=== PATIENT | male | born 2000 | race Hispanic/Latino ===

== ENCOUNTER 2022-04-17 11:10 | Emergency (ER) | payer OTHER, SELFPAY ==
[2022-04-17 11:26] VITALS: BP 127/87; PULSE 86; RESP 18; TEMP 36.1; O2SAT 100
--- NOTE | 2022-04-17 12:05 | ED.EPISTAXIS ---
HPI - Epistaxis General Chief complaint: Extremity Injury, Lower Stated complaint: LEFT FOOT PAIN Related Data Allergies Allergy/AdvReac Type Severity Reaction Status Date / Time No Known Allergies Allergy Mild Verified 08/26/10 22:29 Course Vital Signs Vital signs: Vital Signs Temperature 97.0 F L 04/17/22 11:26 Pulse Rate 86 04/17/22 11:26 Respiratory Rate 18 04/17/22 11:26 Blood Pressure 127/87 04/17/22 11:26 Pulse Oximetry 100 04/17/22 11:26 Oxygen Delivery Room Air 04/17/22 11:26 Temperature 97.0 F L 04/17/22 11:26 Pulse Rate 86 04/17/22 11:26 Respiratory Rate 18 04/17/22 11:26 Blood Pressure 127/87 04/17/22 11:26 Pulse Oximetry 100 04/17/22 11:26 Oxygen Delivery Room Air 04/17/22 11:26 Discharge Plan Discharge Follow-up/Referrals: Bar,KALIE Palacio [Primary Care Provider] -
--- NOTE | 2022-04-17 12:06 | ED.EXTPRO ---
HPI - Extremity Problem General Chief complaint: Skin/Abscess/Foreign Body Stated complaint: LEFT FOOT PAIN Time Seen by Provider: 04/17/22 12:06 History of Present Illness HPI Narrative: Yuan Gutierrez is a 21 yo male with no PMH who [facility] with a wart on the bottom of his left foot that is painful when standing. Started in December and has not gotten much better and are worse but is very irritating Related Data Allergies Allergy/AdvReac Type Severity Reaction Status Date / Time No Known Allergies Allergy Mild Verified 04/17/22 12:11 Review of Systems Review of Systems: CONSTITUTIONAL: Denies fever, chills, sweats. EYES: Denies visual changes, redness, discharge. ENT: Denies rhinorrhea, congestion, sore throat, otalgia. CARDIOVASCULAR: Denies chest pain, palpitations, edema. RESPIRATORY: Denies dyspnea, wheezing, cough GASTROINTESTINAL: Denies abdominal pain, nausea, vomiting, diarrhea. GENITOURINARY: Denies dysuria, hematuria, abnormal discharge SKIN: Denies rash or itching. NEUROLOGIC: Denies numbness, or focal weakness. PSYCHIATRIC: Denies anxiety or depression. Wart on bottom of left foot PMFSH Comments At time of signature, I agree with nursing past medical, surgical, social and family history. There is no relevant family history pertinent to the presenting complaint. Exam Narrative: GENERAL: This is a well-nourished, well-developed patient, in mild distress. HEAD: normocephalic, atraumatic. EYES: Sclera clear/white. Vision is grossly intact. EARS: External ears normal, . Hearing grossly intact. NOSE: External nose normal without nasal discharge, nares without redness, no rhinorrhea. THROAT: Mucous membranes moist, NECK: Neck supple, non-tender CARDIOVASCULAR: Regular rate and rhythm without murmurs, gallops, or rubs. RESPIRATORY: Clear to auscultation. Breath sounds equal bilaterally. No wheezes, rales, or rhonchi. GASTROINTESTINAL: Not done SKIN: warm, intact with no suspicious lesions or rash, good texture and turgor. Large wart in the mid foot of left foot, painful to touch, measures half centimeter by half centimeter by half centimeter NEURO: awake, alert, and oriented to person, place and time. There were no obvious focal neurologic abnormalities. Steady gait EXTREMITIES: Normal range of motion. BACK: Nontender without deformity Course Course Emergency Course: Patient here with for the bottom of left foot Described salicylic acid discussed removal with tape and the timeline will take to remove the wart Level of Care: Express Care Visit Vital Signs Vital signs: Vital Signs Temperature 97.0 F L 04/17/22 11:26 Pulse Rate 86 04/17/22 11:26 Respiratory Rate 18 04/17/22 11:26 Blood Pressure 127/87 04/17/22 11:26 Pulse Oximetry 100 04/17/22 11:26 Oxygen Delivery Room Air 04/17/22 11:26 Temperature 97.0 F L 04/17/22 11:26 Pulse Rate 86 04/17/22 11:26 Respiratory Rate 18 04/17/22 11:26 Blood Pressure 127/87 04/17/22 11:26 Pulse Oximetry 100 04/17/22 11:26 Oxygen Delivery Room Air 04/17/22 11:26 MDM - Extremity (Nontraumatic) Differential Diagnosis Differential diagnosis: Likely gout, cellulitis and other (Wart) Critical Care Time Critical Care Time Critical Care Time: No Discharge Plan Discharge Clinical Impression: Plantar wart of left foot Patient Disposition: Home, Self-Care Condition: Stable Instructions: Plantar Wart (ED) Prescriptions: New Wart Remover 40 % adhesive patch,medicated 1 applic topical Q48H Qty: 14 0RF Follow-up/Referrals: Bar,KALIE Palacio [Primary Care Provider] - Stand Alone Forms: Work/School Release IP Time of Disposition: 12:26
== END 2022-04-17 12:28 | disposition home or self-care (01) ==
PROVIDERS: Emergency Provider Nurse Practitioner; PCP Registered Nurse
DX: B07.0 Plantar wart (principal)
CPT/HCPCS: 99213; G0463